=== PATIENT | female | born 1995 | race Caucasian/White ===

== ENCOUNTER 2018-03-15 20:04 | Emergency (ER) | payer OTHER ==
[~2018-03-15] VITALS: Ht 157.5 cm; Wt 54.4 kg
[~2018-03-15 20:04] MED LIST: ACETAMINOPHEN-1 EAC1 PO; INDOMETHACIN 2525 MG PO
[2018-03-15] MEDS ORDERED: PREDNISONE 20 M20 MG PO (22:54)
[2018-03-16] VITALS: BP 106/75
== END 2018-03-16 01:45 | disposition home or self-care (01) ==
LOC: ER 20:04
DX: M79.604 Pain in right leg (principal); F31.9 Bipolar disorder, unspecified; F90.9 Attention-deficit hyperactivity disorder, unspecified type

== ENCOUNTER 2019-05-31 19:22 | Emergency (ER) | payer OTHER ==
[~2019-05-31] VITALS: Ht 157.5 cm; Wt 58.5 kg
[~2019-05-31 19:22] MED LIST changes: +NOHOMEMEDICATIONS; +PREDNISONE 20 M20 MG PO
[2019-05-31 20:09] LABS: HEMOGLOBIN 13.4 gm/dL (12.0-15.0)
[2019-05-31 20:10] LABS: ABSOLUTE NEUTROPHILS 7.6 thou/uL (1.4-8.2); BASOPHILS 0.6 % (0.0-2.0); EOSINOPHILS 0.5 % (0.0-3.0); HEMATOCRIT 39.5 % (37.0-47.0); LYMPHOCYTES 14.2 % (24.0-44.0); MCH 30.8 pg (26.0-34.0); MCHC 33.9 g/dL (28.0-37.0); MCV 91.1 fL (80.0-100.0); MONOCYTES 4.7 % (1.0-8.0); PLATELET COUNT 214 thou/uL (150-400); RBC 4.34 mil/uL (4.20-5.00); WBC 9.5 thou/uL (4.0-11.0)
[2019-05-31 20:12] LABS: URINE BILIRUBIN NEGATIVE (Negative); URINE BLOOD NEGATIVE (Negative); URINE CLARITY CLEAR; URINE COLOR YELLOW; URINE GLUCOSE-RANDOM* NEGATIVE (Negative); URINE KETONES NEGATIVE (Negative); URINE LEUKOCYTES-REFLEX TRACE (Negative); URINE NITRITE-REFLEX NEGATIVE (Negative); URINE PROTEIN (DIPSTICK) NEGATIVE (Negative); URINE SPECIFIC GRAVITY 1.015 (1.005-1.035); URINE UROBILINOGEN 0.2 E.U./dl (0.2-1.0)
[2019-05-31 20:16] LABS: CALCIUM 9.2 mg/dL (8.5-10.1); CREATININE 0.7 mg/dL (0.6-1.0); POTASSIUM 3.7 mmol/L (3.5-5.1)
[2019-05-31] MEDS ORDERED: ONDANSETRON HCL4 M2 PO (21:24)
[2019-05-31] MEDS ORDERED: ZANAFLEX4 MG PO (21:24)
[2019-05-31 21:33] VITALS: BP 105/51
== END 2019-05-31 21:44 | disposition home or self-care (01) ==
LOC: ER 19:22
PROVIDERS: Nurse Practitioner
DX: J03.90 Acute tonsillitis, unspecified (principal); R11.2 Nausea with vomiting, unspecified; R51 Headache; R42 Dizziness and giddiness; F31.9 Bipolar disorder, unspecified; F90.9 Attention-deficit hyperactivity disorder, unspecified type; Z86.2 Personal history of diseases of the blood and blood-forming organs and certain disorders involving the immune mechanism

== ENCOUNTER 2019-10-15 19:47 | Emergency (ER) | payer OTHER ==
[~2019-10-15] VITALS: Ht 152.4 cm; Wt 45.4 kg
[~2019-10-15 19:47] MED LIST changes: +ONDANSETRON HCL4 M2 PO; +ZANAFLEX4 MG PO
[2019-10-15 19:53] VITALS: BP 117/47
[2019-10-15] MEDS ORDERED: MEDROLDOSEPACK PO (23:15)
[2019-10-15] MEDS ORDERED: PROMETH-CODEIN 65 ML PO (23:15)
== END 2019-10-15 23:30 | disposition home or self-care (01) ==
LOC: ER 19:47
DX: J20.9 Acute bronchitis, unspecified (principal); F90.9 Attention-deficit hyperactivity disorder, unspecified type; F31.9 Bipolar disorder, unspecified; Z86.2 Personal history of diseases of the blood and blood-forming organs and certain disorders involving the immune mechanism

== ENCOUNTER 2020-02-26 18:12 | Emergency (ER) | payer OTHER ==
[~2020-02-26] VITALS: Ht 157.5 cm; Wt 57.6 kg
[~2020-02-26 18:12] MED LIST changes: +MEDROLDOSEPACK PO; +PROMETH-CODEIN 65 ML PO
[2020-02-26 19:09] LABS: URINE BILIRUBIN NEGATIVE (Negative); URINE BLOOD 2+ (Negative); URINE CLARITY CLEAR; URINE COLOR YELLOW; URINE GLUCOSE-RANDOM* NEGATIVE (Negative); URINE KETONES NEGATIVE (Negative); URINE LEUKOCYTES-REFLEX NEGATIVE (Negative); URINE NITRITE-REFLEX NEGATIVE (Negative); URINE PROTEIN (DIPSTICK) NEGATIVE (Negative); URINE SPECIFIC GRAVITY 1.015 (1.005-1.035); URINE UROBILINOGEN 0.2 E.U./dl (0.2-1.0)
[2020-02-26 19:16] LABS: CASTS None Seen /LPF (None Seen); CRYSTALS None Seen /LPF (None Seen); SQUAMOUS 0-3 Few /LPF (0-3)
[2020-02-26 19:17] LABS: BACTERIA-REFLEX 1-9 Few /HPF (None Seen); URINE RBC 0-2 Rare /HPF (0-2); URINE WBC-REFLEX None Seen /HPF (0-5)
[2020-02-26] MEDS ORDERED: NAPROSYN500 MG PO (20:16)
[2020-02-26 20:42] VITALS: BP 104/69
--- NOTE | 2020-02-27 07:41 | EKG ---
[facility] [place] [address] ELECTROCARDIOGRAM REPORT Name: THOMAS GRANT Room #: DEP [facility]#: [id number] Admission: 02/26/20 Attend Phys: Discharge: 02/26/20 Date of : [birth year] Report #: [id number] THIS REPORT FOR: cc: CELIA - Bri[place] family physician/PCP CELIA - [place] family physician/PCP Mp Gonzalez MD [facility] THIS REPORT FOR: //name// [facility] ED Test Date: 2020-02-26 Test Time: 18:51:54 Pat Name: THOMAS GRANT Department: Room: Gender: Investigative Analyst: [facility] : 1995 Requested By: Chuy Lopez Order Number: [id number] MD: Mp Gonzalez Measurements Intervals [place] Rate: 82 P: 64 NE: 180 QRS: 64 QRSD: 68 T: 51 QT: 348 QTc: 407 Interpretive Statements Sinus rhythm Normal tracing Compared to ECG 07/11/2010 16:16:21 No significant changes Electronically Signed On 02-27-2020 7:40:50 CDT by Mp Gonzalez [email or web address] <ELECTRONICALLY SIGNED> By: Mp Gonzalez MD, [facility] 02/27/20 0740 185 50 Mp Gonzalez MD, [facility] /EPI
== END 2020-02-26 20:43 | disposition home or self-care (01) ==
LOC: ER 18:12
PROVIDERS: Emergency Medicine
DX: S63.601A Unspecified sprain of right thumb, initial encounter (principal); S83.92XA Sprain of unspecified site of left knee, initial encounter; R55 Syncope and collapse; Z79.899 Other long term (current) drug therapy; W19.XXXA Unspecified fall, initial encounter; Y93.89 Activity, other specified; Y92.89 Other specified places as the place of occurrence of the external cause; Y99.8 Other external cause status

== ENCOUNTER 2021-07-22 17:59 | Emergency (ER) | payer OTHER ==
[~2021-07-22] VITALS: Ht 160 cm; Wt 57.6 kg
[~2021-07-22 17:59] MED LIST changes: +NAPROSYN500 MG PO
[2021-07-22 18:02] VITALS: BP 153/78
--- NOTE | 2021-07-26 07:30 | EKG ---
[place] [address] [employer] [place] [address] ELECTROCARDIOGRAM REPORT Name: THOMAS GRANT Room #: [facility]#: [id number] Admission: 07/22/21 Attend Phys: Discharge: 07/22/21 Date of : [birth year] Report #: [id number] [facility] ED Test Date: 2021-07-22 Test Time: 18:08:12 Pat Name: THOMAS GRANT Department: Room: Gender: F Pc Maintenance Technician: [place]IL[place] : 1995 Requested By: Everett Wall Order Number: [id number] MD: Adithya Tran Measurements Intervals [place] Rate: 81 P: 73 FL: 203 QRS: 74 QRSD: 77 T: 67 QT: 340 QTc: 395 Interpretive Statements Sinus rhythm Borderline prolonged [place] interval RSR' in V1 or V2, probably normal variant Compared to ECG 02/26/2020 18:51:54 RSR' in V1 or V2 now present Electronically Signed On 07-26-2021 7:29:54 [employer]IS[employer]ECTS ARTIST by Adithya Tran [email or web address] <ELECTRONICALLY SIGNED> By: Adithya Tran MD, [facility] 07/26/21 0729 07 07 Adithya Tran MD, [facility] /EPI
== END 2021-07-22 18:53 | disposition home or self-care (01) ==
LOC: ER 17:59
DX: R05.9 Cough, unspecified (principal); Z20.822 Contact with and (suspected) exposure to COVID-19; F31.9 Bipolar disorder, unspecified; J45.909 Unspecified asthma, uncomplicated